=== PATIENT | female | born 1980 | race Caucasian/White ===

== ENCOUNTER 2019-01-03 14:31 | Outpatient (REF) | payer MEDICAID, SELFPAY ==
--- NOTE | 2019-01-03 11:00 | PAPFT_PTH ---
PATIENT: Kelle Lujan LOC: [facility] U#:[id number] AGE/SX: 38/F ROOM: RE01/03/[address]: Roseann Badillo : 1980 BED: DIS: 01/03/2019 SPEC #: [id number] RECD: 01/04/19 12:52 STATUS: ATTILA REKirby #: [id number] FRED: 01/03/19 11:[address]: Roseann Gramajo DEPT: [facility] Cytology RECD BY: Nena Villarreal Tissues: 1 - CX/ENDOCX FOR PAP SMEARS Procedures: PAP THIN PREP/[facility] Screening HPV DNA PROBE Comments: [id number] (CHLAMYDIA/GC)
[2019-01-05 13:39] LABS: Chlamydia Result Negative; GC Result Negative; Specimen Description SEE COMMENTS
== END 2019-01-03 14:51 ==
LOC: NCHCN 14:31
PROVIDERS: PCP Nurse Practitioner Family; Visit Provider Nurse Practitioner Family
DX: Z11.3 Encounter for screening for infections with a predominantly sexual mode of transmission (principal); Z12.4 Encounter for screening for malignant neoplasm of cervix; Z11.51 Encounter for screening for human papillomavirus (HPV); Z00.00 Encounter for general adult medical examination without abnormal findings
CPT/HCPCS: 87491; 87591; 88142; 87624

== ENCOUNTER 2019-02-06 10:00 | Outpatient (REF) | payer MEDICAID, SELFPAY ==
[2019-02-06 21:19] LABS: Abs Immature Grans 0.02 k/cumm (0.0-0.09); Absolute Basophil Count 0.02 k/cumm (0.0-0.2); Absolute Lymphocyte Count 2.31 k/cumm (1.2-3.4); Absolute Monocyte Count 0.42 k/cumm (0.11-0.7); Absolute Neutrophil Count 4.43 k/cumm (1.2-6.7); Basophils % 0.3; Eosinophils % 6.5; HCT 41.1 % (36.0-46.0); HGB 13.8 g/dL (12.0-15.5); Immature Grans % 0.3; Mean Corp. HGB Concentration 33.6 g/dL (32.0-36.0); Mean Corpuscular Hemoglobin 29.7 pg (27.0-33.0); Mean Corpuscular Volume 88.4 fL (80-95); Mean Platelet Volume 11.2 fL (8.0-11.0); Monocytes % 5.5; Neutrophils % 57.4; Platelet Count 376 x1000/uL (130-400); RBC 4.65 m/cumm (4.00-5.20); RBC Distribution Width 12.4 % (11.7-14.6)
[2019-02-06 21:37] LABS: ALT 31 U/L (12-78); AST 18 U/L (15-37); Albumin 4.4 g/dL (3.4-5.0); Alkaline Phosphatase 68 U/L (46-116); Anion Gap 9.6 mmol/L (3-11); BUN 10 mg/dL (7-18); Bilirubin, Total 0.6 mg/dL (0.2-1.0); CO2 30.4 mmol/L (21.0-32.0); CREATININE 0.85 mg/dL (0.55-1.02); Chloride 99 mmol/L (98-107); Glucose 130 mg/dL (70-100); Lipase 52 U/L (73-393); Potassium 3.5 mmol/L (3.5-5.1); Sodium 139 mmol/L (136-145); TSH 1.61 uIU/mL (0.358-3.74); Total Protein 7.6 g/dL (6.4-8.2)
[2019-02-06 21:44] LABS: Calcium 9.7 mg/dL (8.5-10.1)
[2019-02-08 13:12] LABS: HCG Quant, Pregnancy 1 mIU/mL (1-3)
== END 2019-02-06 10:20 ==
LOC: NCHCN 10:00
PROVIDERS: PCP Nurse Practitioner Family; Visit Provider Nurse Practitioner Family
DX: R63.4 Abnormal weight loss (principal); R11.0 Nausea
CPT/HCPCS: 80053; 83690; 84443; 84702; 85025

== ENCOUNTER 2019-02-22 21:57 | Outpatient (REF) | payer MEDICAID, SELFPAY ==
[2019-02-22 22:57] LABS: HCG Quant, Pregnancy < 1 mIU/mL (1-3)
== END 2019-02-22 22:17 ==
LOC: NCHCN 21:57
PROVIDERS: PCP Nurse Practitioner Family; Visit Provider Nurse Practitioner Family
DX: N92.6 Irregular menstruation, unspecified (principal)
CPT/HCPCS: 84702

== ENCOUNTER 2019-03-02 12:20 | Outpatient (REF) | payer MEDICAID, SELFPAY ==
[2019-03-06 10:37] LABS: Prolactin 11.4 ng/ml
== END 2019-03-02 12:40 ==
LOC: NCHCN 12:20
PROVIDERS: PCP Nurse Practitioner Family; Visit Provider Nurse Practitioner Family
DX: O92.6 Galactorrhea (principal)
CPT/HCPCS: 84146

== ENCOUNTER 2024-11-06 13:17 | Outpatient (REF) | payer OTHER, SELFPAY ==
[2024-11-06 15:08] LABS: HCT 40.1 % (36.0-46.0); HGB 13.3 g/dL (11.2-15.7); MCH 31.5 pg (27.0-33.0); MCHC 33.2 % (32.0-36.0); MCV 95 fL (80-95); MPV 10.4 fL (8.0-11.0); Platelet Count 313 10^3/uL (130-400); RBC 4.22 10^6/uL (3.93-5.22); RDW-SD 42.1 fL; WBC 5.05 10^3/uL (4.4-10.8)
[2024-11-06 15:31] LABS: Hemoglobin A1C 4.9 % (<5.7)
[2024-11-06 15:33] LABS: ALT 15 U/L (14-59); AST 18 U/L (15-37); Albumin 3.7 g/dL (3.4-5.0); Alkaline Phosphatase 51 U/L (46-116); Anion Gap 5.5 mmol/L (3-11); BUN 9 mg/dL (7-18); Bilirubin, Total 0.75 mg/dL (0.2-1.0); CO2 30.5 mmol/L (21.0-32.0); CREATININE 0.8 mg/dL (0.55-1.02); Calcium 8.8 mg/dL (8.5-10.1); Calculated LDL 87 mg/dL (<100); Chloride 104 mmol/L (98-107); Cholesterol 169 mg/dL (<200); Estimated GFR 94.28 (mL/min/1.73m2); Glucose 82 mg/dL (74-106); HDL Cholesterol 73 mg/dL (40-60); Potassium 4.3 mmol/L (3.5-5.1); Sodium 140 mmol/L (136-145); TSH 1.87 uIU/mL (0.36-3.74); Total Protein 6.8 g/dL (6.4-8.2); Triglyceride 46 mg/dL (<150)
== END 2024-11-06 13:18 | disposition home or self-care (01) ==
LOC: NCHCN 13:17
PROVIDERS: PCP Nurse Practitioner Family; Visit Provider Nurse Practitioner Family
DX: Z13.220 Encounter for screening for lipoid disorders (principal); Z13.0 Encounter for screening for diseases of the blood and blood-forming organs and certain disorders involving the immune mechanism; Z13.29 Encounter for screening for other suspected endocrine disorder; Z13.1 Encounter for screening for diabetes mellitus
CPT/HCPCS: 80053; 80061; 85027; 83036; 84443

== ENCOUNTER 2025-03-05 14:22 | Outpatient (REF) | payer OTHER, SELFPAY ==
--- NOTE | 2025-03-05 10:30 | PAPFT_PTH ---
PATIENT: Kelle Lujan LOC: [facility]#:[id number] AGE/SX: 44/F ROOM: RE03/05/[address]: Roseann Badillo : 1980 BED: DIS: 03/05/2025 SPEC #: [id number] RECD: 03/05/25 17:57 STATUS: ATTILA JOSEPH #: [id number] FRED: 03/05/25 10:[address]: Roseann Gramajo DEPT: [facility] Cytology RECD BY: Nena Villarreal Tissues: 1 - CX/ENDOCX FOR PAP SMEARS Procedures: PAP THIN PREP/[facility] Screening HPV DNA PROBE Comments: [id number] (HPV 16 & 18/45)
== END 2025-03-05 14:23 | disposition home or self-care (01) ==
LOC: NCHCN 14:22
PROVIDERS: PCP Nurse Practitioner Family; Visit Provider Nurse Practitioner Family
DX: Z11.51 Encounter for screening for human papillomavirus (HPV) (principal); Z01.419 Encounter for gynecological examination (general) (routine) without abnormal findings; N76.0 Acute vaginitis
CPT/HCPCS: 88142; 87624